=== PATIENT | male | born 1960 | race Caucasian/White ===

== ENCOUNTER 2020-11-05 10:04 | Emergency (ER) | payer OTHER ==
[~2020-11-05] VITALS: Ht 180.3 cm; Wt 121.6 kg
[2020-11-05 10:08] VITALS: BP 112/74
[2020-11-05] MEDS ORDERED: GABA-536 PO (10:25)
[2020-11-05] MEDS ORDERED: FINA5TAB11 PO (10:25)
[2020-11-05] MEDS ORDERED: CHOL100062 PO (10:25)
--- NOTE | 2020-11-05 11:25 | NUR ---
CALLED [facility] FOR [facility] TRANSP[facility]. ETA 3 HOURS.
--- NOTE | 2020-11-05 11:27 | NUR ---
CALLED [facility] FOR TRANSPORT TO [facility]. ETA 45-60 MINUTES.
--- NOTE | 2020-11-05 12:41 | NUR ---
patient picked up by private ambulance going back to SNF, in no distress, accompanied by 2 emt.
== END 2020-11-05 12:41 ==
LOC: ER 10:07
DX: G62.9 Polyneuropathy, unspecified (principal); M79.662 Pain in left lower leg; M79.661 Pain in right lower leg; D64.9 Anemia, unspecified; N40.0 Benign prostatic hyperplasia without lower urinary tract symptoms; Z79.899 Other long term (current) drug therapy
CPT/HCPCS: 82962-TC

== ENCOUNTER 2020-11-10 11:17 | Emergency (ER) | payer OTHER ==
[~2020-11-10] VITALS: Ht 180.3 cm; Wt 122.9 kg
[~2020-11-10 11:17] MED LIST: CHOL100062 PO; FINA5TAB11 PO; GABA-536 PO
[2020-11-10 11:21] VITALS: BP 134/68
--- NOTE | 2020-11-10 12:03 | NUR ---
CALLED [id number] WILL ARRANGE TRANSPORT & INFORM REF#[id number] NE[facility].
--- NOTE | 2020-11-10 14:15 | NUR ---
REPORT GIVEN TO EMT FOR PT TRANSFER BACK TO [facility].
--- NOTE | 2020-11-10 14:18 | NUR ---
Patient discharged to home in stable condition. Written and verbal after care instructions given. Patient verbalizes understanding of instruction.
== END 2020-11-10 14:19 ==
LOC: ER 11:19
DX: Z00.8 Encounter for other general examination (principal); R20.2 Paresthesia of skin; D64.9 Anemia, unspecified; N40.0 Benign prostatic hyperplasia without lower urinary tract symptoms; Z79.899 Other long term (current) drug therapy

== ENCOUNTER 2020-11-24 15:20 | Emergency (ER) | payer OTHER ==
[~2020-11-24] VITALS: Ht 180.3 cm; Wt 113.4 kg
--- NOTE | 2020-11-24 16:05 | NUR ---
BLE PAIN AND SENSITIVITY X TODAY. NO TRAUMA ENDORSED. RATES PAIN 7/10. DENIES NUMBNESS/TINGLING IN THE EXTREMITY. ALERT AND ORIENTED X4. DENIES SOB. RESPIRATION REGULAR AND UNLABORED. WARM BLANKET PROVIDED FOR COMFORT. WILL CONTINUE TO MONITOR THE PATIENT.
--- NOTE | 2020-11-24 17:18 | NUR ---
SPOKE WITH ALE FROM [facility] TRANSPO TRIP #[id number]
--- NOTE | 2020-11-24 17:29 | NUR ---
[facility] WILL TRANSPORT ETA IS 1900 PER [facility]
--- NOTE | 2020-11-24 18:46 | NUR ---
Patient discharged to home in stable condition. Written and verbal after care instructions given. Patient verbalizes understanding of instruction. The patient left ER in stable condition.
[2020-11-24 18:47] VITALS: BP 134/80
== END 2020-11-24 18:47 | disposition home or self-care (01) ==
LOC: ER 15:23
DX: G62.9 Polyneuropathy, unspecified (principal); T78.40XA Allergy, unspecified, initial encounter; D64.9 Anemia, unspecified; N40.0 Benign prostatic hyperplasia without lower urinary tract symptoms; Z79.899 Other long term (current) drug therapy; X58.XXXA Exposure to other specified factors, initial encounter

== ENCOUNTER 2021-12-13 03:55 | Emergency (ER) | payer OTHER ==
[~2021-12-13] VITALS: Ht 172.7 cm; Wt 74.8 kg
--- NOTE | 2021-12-13 04:13 | NUR ---
Patient was brought in by ambulance for bilateral leg stiffness. The patient has a history of similar episodes in the past. He states that today it started after he took a new medication which was an [id number] omega-3. He stated that the discomfort in his leg over the course of an hour or so started to improve however the facility sent him in for evaluation. Currently he states he feels much better. Patient is AAO x 4, respirations unlabored, stable on room Awaiting to be seen by Dr Griffiths. Patient attached to monitor and pulse ox. Will cont to monitor.
--- NOTE | 2021-12-13 04:40 | NUR ---
CALLED [facility] FOR BLS BACK TO SNF PER [facility] ETA 40 MIN.
[2021-12-13 05:41] VITALS: BP 140/80
--- NOTE | 2021-12-13 05:41 | NUR ---
Patient discharged to home via ambulance in stable condition. Written and verbal after care instructions given. Patient verbalizes understanding of instruction.
== END 2021-12-13 05:42 ==
LOC: ER 04:09
DX: G62.9 Polyneuropathy, unspecified (principal); R42 Dizziness and giddiness; D64.9 Anemia, unspecified; N40.0 Benign prostatic hyperplasia without lower urinary tract symptoms; Z79.899 Other long term (current) drug therapy

== ENCOUNTER 2021-12-30 11:21 | Emergency (ER) | payer OTHER ==
[~2021-12-30] VITALS: Ht 180.3 cm; Wt 86.2 kg
[2021-12-30 11:25] VITALS: BP 130/76
--- NOTE | 2021-12-30 12:38 | NUR ---
C/O WEAKNESS/NO APPETITE/PAIN AND TINGLING OF BOTH LEGS AND REFUSING MEDS
--- NOTE | 2021-12-30 12:46 | NUR ---
CALLED [facility] AND SET UP BLS TRANSPORT ETA 1333
--- NOTE | 2021-12-30 12:46 | NUR ---
CALLED [facility],SPOKE WITH CHELY TELLING HER THAT PATIENT IS BEING DISCHARGE BACK
== END 2021-12-30 13:30 | disposition home or self-care (01) ==
LOC: ER 11:41
DX: G62.9 Polyneuropathy, unspecified (principal); Z87.19 Personal history of other diseases of the digestive system; Z79.899 Other long term (current) drug therapy